=== PATIENT | female | born 1935 | race Two or more races ===

== ENCOUNTER 2017-06-04 05:50 | Inpatient (IN) | END 2017-06-07 15:29 | disposition home or self-care (01) | DRG 375 ==

== ENCOUNTER 2017-06-27 18:05 | Inpatient (IN) | END 2017-06-29 18:10 | disposition home or self-care (01) | DRG 375 ==

== ENCOUNTER 2017-07-18 01:08 | Inpatient (IN) | END 2017-08-13 14:16 | disposition hospice, home (50) ==